=== PATIENT | female | born 1985 | race Caucasian/White ===

== ENCOUNTER → 2020-06-11 11:17 | Outpatient (CLI) | payer BC, SELFPAY ==
--- NOTE | ~2020-06-11 | US_ITS ---
EXAMINATION: US pelvic complete DATE: 06/11/2020 11:36 INDICATION: Breakthrough bleeding after workout TECHNIQUE: Multiple transabdominal sonographic images of the pelvis were obtained. COMPARISON: None. FINDINGS: The uterus measures 7.1 x 3.4 x 4.5 cm. The endometrial complex measures 6 mm. The right ov jim measures 3.1 x 1.6 x 2 cm. The left ovary measures 3.4 x 2.6 x 5 cm and contains small follicles and cysts. There is normal vascular flow in the ovaries. There is no free fluid in the pelvis. IMPRESSION: 1. No sonographic correlate for the patient's symptoms. Reviewed, dictated and finalized at location B.
== END ==
PROVIDERS: Visit Provider Nurse Practitioner
DX: N93.9 Abnormal uterine and vaginal bleeding, unspecified (principal)
CPT/HCPCS: 76856

== ENCOUNTER → 2021-04-15 17:14 | Outpatient (CLI) | payer BC, SELFPAY ==
--- NOTE | ~2021-04-15 | XR_ITS ---
EXAMINATION: XR knee LT min 4V, XR knee RT min 4V DATE: 04/15/2021 17:39 INDICATION: Bilateral knee pain TECHNIQUE: 1. Weight bearing anteroposterior and Hull, sunrise, and flexed lateral views of the left knee w ere obtained 2. Weight bearing anteroposterior and Hull, sunrise, and flexed lateral views of the right knee were obtained COMPARISON: None. FINDINGS: Alignment is normal at both knees. No fracture. Joint spaces are normal at both knees. No joint effu alverto. Soft tissues are unremarkable. IMPRESSION: 1. Normal bilateral knee radiographs. Reviewed, dictated and finalized at location A. IMPRESSION: 1. Normal bilateral knee radiographs.
== END ==
PROVIDERS: PCP Family Medicine; Visit Provider Physician Assistant
DX: M25.561 Pain in right knee (principal); M25.562 Pain in left knee
CPT/HCPCS: 73564

== ENCOUNTER → 2021-06-03 09:05 | Outpatient (CLI) | payer BC, SELFPAY ==
--- NOTE | ~2021-06-03 | XR_ITS ---
EXAMINATION:XR_CERV2-3V_CR DATE: 06/03/2021 09:49 INDICATION: Neck pain TECHNIQUE: AP, lateral, and odontoid views of the cervical spine are provided. COMPARISON: None FINDINGS: Alignment is normal. The odontoid is intact. No fracture is identified. Vertebral body heig hts and disk spaces are normal. Prevertebral soft tissues are normal. IMPRESSION: 1. No acute osseous abnormality. Reviewed, dictated and finalized at location A.
--- NOTE | ~2021-06-03 | XR_ITS ---
EXAMINATION: XR lumbar spine 2-3V DATE: 06/03/2021 09:49 INDICATION: Low back pain TECHNIQUE: Anteroposterior and lateral views of the lumbar spine, and cone-down lateral view of the l umbosacral junction were obtained. COMPARISON: None. FINDINGS: There is no fracture, dislocation, or subluxation. The vertebral body heights, alignment, a nd intervertebral disc spaces are normal. The paravertebral soft tissues are unremarkable. IMPRESSION: 1. No acute osseous abnormality. Reviewed, dictated and finalized at location A.
== END ==
PROVIDERS: PCP Family Medicine; Visit Provider Physician Assistant
DX: M54.5 Low back pain (principal); M54.2 Cervicalgia
CPT/HCPCS: 72040; 72100

== ENCOUNTER 2024-02-25 08:34 | Outpatient (CLI) | payer BC, SELFPAY ==
--- NOTE | ~2024-02-25 | MMUS_ITS ---
EXAMINATION: MM diagnostic amanda BI w zoey, US breast BI complete HISTORY: Bilateral breast lumps TECHNIQUE: ML, MLO and CC 3-D tomosynthesis images of both breasts were performed and synthetic 2-D i mages were generated. CAD analysis was submitted and interpreted. High resolution complete bilateral breast ultrasound examination including all 4 quadrants and subareolar areas was performed. COMPARISON: None BREAST PARENCHYMAL COMPOSITION: The breasts are extremely dense, which lowers the sensitivity of mamm ography. FINDINGS: MAMMOGRAPHIC FINDINGS: No suspicious mass or architectural distortion, malignant calcification, skin thickening or retractio n is detected. The extremely dense stroma may obscure masses. ULTRASOUND: No suspicious mass or shadowing of either breast is detected. Right breast: 4.9 x 6.5 x 3.2 mm simple cyst with through transmission posterior enhancement is noted in the subare olar area. 10:00 6 cm from nipple: Parallel circumscribed sonolucent 2.5 x 6.9 x 6.3 mm lesion without internal vascularity, with through transmission, consistent with simple cyst Left breast: Parallel circumscribed sonolucency with through transmission, no internal vascularity, m easuring 6.7 x 6 x 3.3 mm, consistent with simple cyst IMPRESSION: 1. Benign findings 2. Routine mammographic screening is recommended BI-RADS Category 2: Benign finding(s). Reviewed, dictated and finalized at location A. IMPRESSION: 1. Benign findings 2. Routine mammographic screening is recommended BI-RADS Category 2: Benign finding(s).
== END 2024-02-25 08:35 | disposition home or self-care (01) ==
LOC: CHSIMG 08:36
PROVIDERS: PCP Family Medicine; Visit Provider Nurse Practitioner
DX: N63.10 Unspecified lump in the right breast, unspecified quadrant (principal); N63.20 Unspecified lump in the left breast, unspecified quadrant
CPT/HCPCS: 76641; 77062; 77066; G0279

== ENCOUNTER 2024-12-16 09:02 | Outpatient (CLI) | payer BC, SELFPAY ==
--- NOTE | ~2024-12-16 | CT_ITS ---
EXAMINATION: CT abdomen pelvis w con DATE: 12/16/2024 09:29 INDICATION: Low abdominal pain, unspecified. TECHNIQUE: Computed tomography (CT) of the abdomen and pelvis was performed with 100 mL Omnipaque 350 intravenous contrast. Automated exposure control and iterative reconstruction technique were employe d. The dose-length product was 329.18 mGy-cm. COMPARISON: None. FINDINGS: The visualized portions of lung bases demonstrate mild atelectasis. No pleural effusion. Th e heart size is normal. No pericardial effusion. There is a 14 mm mass in the liver. The gallbladder, spleen, pancreas, and adrenal glands are normal. There are cysts in the kidneys measuring up to 8 mm on the right. The appendix is normal. There are no dilated loops of bowel. There are no pathological ly enlarged lymph nodes. There is no free intraperitoneal fluid. The bones are unremarkable. IMPRESSION: 1. 14 mm liver mass, which may be benign or less likely malignant. Abdomen MRI without and with contr ast is recommended. Reviewed, dictated and finalized at location A. OF TOWN COLLECTION CLERK IMPRESSION: 1. 14 mm liver mass, which may be benign or less likely malignant. Abdomen MRI without and with contrast is recommended.
== END 2024-12-16 09:03 | disposition home or self-care (01) ==
LOC: MICIMG 09:03
PROVIDERS: PCP Family Medicine; Visit Provider Physician Assistant Medical
DX: R10.30 Lower abdominal pain, unspecified (principal); K52.9 Noninfective gastroenteritis and colitis, unspecified
CPT/HCPCS: 74177; Q9967

== ENCOUNTER 2024-12-31 13:19 | Outpatient (CLI) | payer BC, SELFPAY ==
--- NOTE | ~2024-12-31 | MR_ITS ---
EXAMINATION: MR abdomen wo/w con DATE: 12/31/2024 14:10 INDICATION: 14 mm liver mass on prior CT TECHNIQUE: Magnetic resonance imaging (MRI) of the abdomen was performed without and with 9 mL Multih ance intravenous contrast. Sequences included coronal T2-weighted SS-FSE, coronal and axial FS 2D-FI ESTA, axial STIR FSE, axial T2-weighted SS-FSE, axial T2-weighted FS SS-FSE, axial diffusion-weighted SE, axial dual-echo T1-weighted FSPGR, and axial and coronal T1-weighted LAVA. Postcontrast axial T1 -weighted LAVA images were obtained in a time course. Postcontrast coronal T1-weighted LAVA images we re obtained. COMPARISON: CT dated 12/16/2024 FINDINGS: Heart size is normal. No pericardial or pleural effusion. Gallbladder, spleen, pancreas, left kidney and bilateral adrenal glands are normal. 9 mm T2 hyperintense nonenhancing right renal cyst. 1.4 cm T 2 hyperintense lesion at the dome of the liver which demonstrate subtle peripheral enhancement on the 5 minute delayed image which fills in remains on the delayed imaging consistent with a hemangioma. N o other hepatic lesions identified. Visualized portions of bowels are unremarkable. No pathologically enlarged abdominal lymphadenopathy. Bone marrow signal is normal throughout. IMPRESSION: 1. 14 mm hemangioma at the dome of the liver. Reviewed, dictated and finalized at location B. TH SERVICE COORDINATOR
== END 2024-12-31 13:20 | disposition home or self-care (01) ==
PROVIDERS: PCP Family Medicine; Visit Provider Physician Assistant Medical
DX: R16.0 Hepatomegaly, not elsewhere classified (principal)
CPT/HCPCS: 74183; A9577

== ENCOUNTER 2025-01-12 01:43 | Day surgery (SDC) | payer BC, SELFPAY ==
[2025-01-08 11:06] VITALS: BMI 19.1
--- OUTSIDE RECORDS SUMMARY | 2025-01-12 01:46 | XMS_ITS ---
Author Organization [facility] Address [address] [facility] [address] [place] [address] Care Team Providers Care Belt Splicer Name Role Phone Taurus Lundberg Primary Care Provider JAYA Deal [phone] Medications Medication SIG (Take, Route, Frequency, Duration) Notes Start Date End Date Status Escitalopram Oxalate 10 MG TAKE 1 TABLET BY MOUTH ONCE DAILY Oral for 90 Days Active Escitalopram Oxalate 10 MG Oral for 90 Days Active Lo Loestrin Fe 1 MG-10 MCG / 10 MCG Oral for 84 Days Active Lo Loestrin Fe 1 MG-10 MCG / 10 MCG TAKE 1 TABLET BY MOUTH ONCE DAILY Oral for 84 Days Active Encounters Encounter Location Date Provider Diagnosis [facility] [address] [facility] [address] [place] [address] 07/22/2024 JAYA COLE Plan Of Treatment No Information Progress Notes * Danna FAY DDOB: 6 (39 yo F)Acc No.[id number]:07/22/2024 Patient: Danna VILLARREAL Cynthia Provider: Emily Cole MD :1985 A ge:38 Y S ex:Female Date:07/22/2024 Address:[address] Pcp:Taurus Lundberg Subjective: * Chief Complaints: * * Medical History: * Medications: T aking Escitalopram Oxalate 10 MG Tablet TAKE 1 TABLET BY MOUTH ONCE DAILY Oral , Taking Escitalopram Oxalate 10 MG Tablet Oral , Taking Lo Loestrin Fe 1 MG-10 MCG / 10 MCG Tablet Oral , Taking Lo Loestrin Fe 1 MG-10 MCG / 10 MCG Tablet TAKE 1 TABLET BY MOUTH ONCE DAILY Oral Objective: * Vitals: Assessment: Plan: * Treatment: * * Electronic signature of RAUL COLE MD on 01/12/2025 at 01:46 AM CDT Sign off status: Pending * Provider: Emily Cole MD Date: 0 07/22/2024 Generated for Fernando naidu/Tito/John on: 0 01/12/2025 01:46 AM CDT
--- OUTSIDE RECORDS SUMMARY | 2025-01-12 01:46 | XMS_ITS | Referral Summary ---
Author Organization [facility] Address [address] [place] [address] Care Team Providers Care Sr Account Executive Name Role Phone Taurus Lundberg MD Primary Care Provider Allergies Active Allergy Reactions Criticality Noted Date Comments Penicillin G Rash Reaction: RASH, Medications ergocalciferol (VITAMIN D) 50,000 unit capsule TAKE 1 CAPSULE BY MOUTH ONCE A WEEK (EVERY 7 DAYS) 10/28/2020 Active doxycycline (PERIOSTAT) 20 mg tablet 05/17/2021 Active spironolactone (ALDACTONE) 50 mg tablet TAKE 1 TABLET BY MOUTH ONCE DAILY FOR ACNE 05/13/2021 Active Active Problems No known active problems Immunizations Immunization Administration Dates Next Due HPV, Quadrivalent 07/15/2012 Td, adsorbed 11/05/2007 Social History Tobacco Use Types Packs/Day Years Used Date Smoking Tobacco: Never Smokeless Tobacco: Never Alcohol Use Standard Drinks/Week Comments Yes 0 (1 standard drink = 0.6 oz pur e alcohol) Comments Unknown Sex and Gender Information Value Date Recorded Sex Assigned at Not on file Legal Sex Female 11:17 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 Gender Identity Not on file Sexual Orientation Not on file Last Filed Vital Signs Vital Sign Reading Time Taken Comments Blood Pressure 110/73 08/05/2021 1:36 PM CDT Pulse 73 08/05/2021 1:36 PM CDT Temperature - - Respiratory Rate - - Oxygen Saturation - - Inhaled Oxygen Concentration - - Weight 53.1 kg (117 lb) 08/05/2021 1:36 PM CDT Height 165.1 cm (5' 5 ) 08/05/2021 1:36 PM CDT Body Mass Index 19.47 08/05/2021 1:36 PM CDT Plan of Treatment Not on file Insurance [facility] BL CHOICE PRF PPO [place] Care Teams Sr Account Executive Relationship Specialty Start Date End Date Taurus Lundberg MD [address] [facility] [address] [place] [address] PCP - General Family Medicine 04/28/21
--- OUTSIDE RECORDS SUMMARY | 2025-01-12 01:46 | XMS_ITS | Patient Health Record ---
Author Organization [facility] Address [address] [facility] [address] [facility] [[email or web address] [address] [place] [address] Care Team Providers Care Airline Customer Service Agent Name Role Phone Taurus Lundberg Primary Care Provider JAYA Deal Unavailable [phone] Allergies No Known Allergies Reason For Referral No Information Medications Medication SIG (Take, Route, Frequency, Duration) [...] ONCE DAILY Oral for 84 Days Active Social History Tobacco Use: Social History Observation Description Date Details (start date - stop date) Never Smoker NA - NA Tobacco Use/Smoking Question Answer Notes Are you a nonsmoker Alcohol Screen (Audit-C) Question Answer Notes Did you have a drink contain ing alcohol in the past year? Yes How often did you have a dri nk containing alcohol in the past year? Monthly or less (1 point) How often did you have 6 or more drinks on one occasion in the past year? Never (0 point) Points 1 Interpretation Negative Encounters Encounter Location Date Provider Diagnosis [address] [address] 06/21/2024 JAYA COLE Asymptomatic varicose veins of unspecified lower extremity I83.90 and Pain in leg, unspecified M79.606 [facility] [address] [facility] [address] [place] [address] 07/22/2024 JAYA COLE [address] [place] [place] [address] 01/09/2025 JAYA COLE [facility] [address] [facility] [address] [place] [address] 06/06/2024 JAYA COLE Asymptomatic varicose veins of unspecified lower extremity I83.90 and Pain in leg, unspecified M79.606 [facility] [address] [address] 06/21/2024 JAYA COLE [facility] [address] [facility] [address] [place] [address] 06/06/2024 JAYA COLE [facility] [address] [facility] [address] [address] 06/21/2024 JAYA COLE [facility] [address] [address] 11/04/2024 JAYA COLE Assessments Encounter Date Diagnosis (ICD Code) Assessment Notes Treatment Notes Treatment Clinical Notes Section Notes 06/06/2024 Asymptomatic varicose veins of unspecified lower extremity (ICD-10 - I83.90) 06/06/2024 Pain in leg, unspecified (ICD-10 - M79.606) Venous reflux studies not done. Will start conservative therapy with compression stockings, leg elevation, exercise and NSAID-s. Further recommendations will follow.,will need sclerotherapy 400 dolloar session times 1 to claf spiders 06/21/2024 Asymptomatic varicose veins of unspecified lower extremity (ICD-10 - I83.90) 0.3% poly sclerotherapy given to both legs,no issue,wrapped no issues 06/21/2024 Pain in leg, unspecified (ICD-10 - M79.606) Plan Of Treatment No Information Insurance Providers Payer Name Payer Address Payer Phone Subscriber Number Group Number Insured Name Patient Relationship to Insured Coverage Start Date Coverage End Date [employer] [address] [place], [place] [id number] Danna Ibanez Self - patient is the insured Medical (General) History Medical History History ICD Code Depression/Anxiety Surgical History Surgery Date(Month/Year) Mole removal Oral Surgery
--- OUTSIDE RECORDS SUMMARY | 2025-01-12 01:46 | XMS_ITS ---
Author Organization [facility] Address [address] [facility] [address] [place] [address] Care Team Providers Care Junior Automation Engineer Name Role Phone Taurus Lundberg Primary Care Provider JAYA Deal Unavailable [phone] REASON FOR VISIT UPDATE Encounters Encounter Location Date Provider Diagnosis [facility] [address] [facility] [address] [place] [address] 11/04/2024 JAYA COLE Plan Of Treatment No Information Progress Notes * Danna FAY DDOB: 6 (39 yo F)Acc No.[id number]:11/04/2024 Patient: Danna VILLARREAL :1985 A ge:39 Y S ex:Female Address:[address], [place] [address] * true * Date: Generated for Fernando naidu/Tito/eTransmitting on: 0 01/12/2025 01:46 AM CDT
--- OUTSIDE RECORDS SUMMARY | 2025-01-12 01:46 | XMS_ITS | Clinical Summary ---
Author Organization [facility] Address [address] [place] [address] Phone Care Team Providers Care Channel Supervisor Name Role Phone Taurus Lundberg MD Primary Care Provider Allergies Active Allergy Reactions Criticality Noted Date Comments Penicillins Other (see Comments) 11/03/2020 Medications ergocalciferol (VITAMIN D) [address]463 UNIT Capsule TAKE 1 CAPSULE BY MOUTH ONCE A WEEK (EVERY 7 DAYS) 10/28/2020 Active terbinafine (LamISIL) 250 MG Tablet TAKE 1 TABLET BY MOUTH ONCE DAILY 07/24/2020 Active Active Problems No known active problems Social History Tobacco Use Types Packs/Day Years Used Date Smoking Tobacco: Never Smokeless Tobacco: Never Comments No Sex and Gender Information Value Date Recorded Sex Assigned at Not on file Legal Sex Female 7:54 AM RESEARCH ANALYST Gender Identity Not on file Sexual Orientation Not on file Last Filed Vital Signs Vital Sign Reading Time Taken Comments Blood Pressure 100/56 11/03/2020 8:05 AM RESEARCH ANALYST Pulse 75 11/03/2020 8:05 AM RESEARCH ANALYST Temperature 37.3 C (99.1 F) 11/03/2020 8:05 AM RESEARCH ANALYST Respiratory Rate 18 11/03/2020 8:05 AM RESEARCH ANALYST Oxygen Saturation 99% 11/03/2020 8:05 AM RESEARCH ANALYST Inhaled Oxygen Concentration - - Weight 49.9 kg (110 lb) 11/03/2020 8:05 AM RESEARCH ANALYST Height - - Body Mass Index - - Plan of Treatment Health Maintenance Due Date Last Done Comments Hepatitis C Virus (HCV) Screening 1985 TdaP Immunization 1985 Pap Smear 2007 Cervical Cancer Screening (CCS) 2016 HPV/Cotest 2016 Influenza Immunization (#1) 2024 SARS-COV-2 Immunization ( season) 2024 08/26/2021, 12/02/2020, 11/04/2020 Respiratory Syncytial Virus (RSV) Immunization (Adult) (1 - 1-dose 75+ series) 2061 DTaP/Tdap/Td Immunization Discontinued 1991, 10/26/1987, 07/21/1987, Additional history exists Hepatitis B Immunization Completed 997, 02/11/1997, 01/07/1997 Meningococcal Immunization (ACWY) Aged Out No longer eligible based on patient's age to complete this topic Pneumococcal Immunization Combined Aged Out No longer eligible based on patient's age to complete this topic Rotavirus Immunization Aged Out No lo nger eligible based on patient's age to complete this topic Insurance Care Teams Channel Supervisor Relationship Specialty Start Date End Date Taurus Lundberg MD [address] [place] [address] PCP - General Family Medicine 11/03/20
--- OUTSIDE RECORDS SUMMARY | 2025-01-12 01:46 | XMS_ITS ---
Author Organization [facility] Address [address] [address] Care Team Providers Care Aircraft Quality Control Inspector Name Role Phone Taurus Lundberg Primary Care Provider JAYA Deal Unavailable [phone] REASON FOR VISIT touch up session $150.00 plus co pay amount $40.00 back bill please collect $190.00 total Encounters Encounter Location Date Provider Diagnosis [address] [address] 01/09/2025 JAYA COLE Plan Of Treatment No Information Progress Notes * Danna FAY DDOB: 6 (39 yo F)Acc No.[id number]:01/09/2025 Patient: Octavio VALIENTEDanna Provider: Emiyl Cole MD :1985 A ge:39 Y S ex:Female Date:01/09/2025 Address:[address] Pcp:Taurus Lundberg Subjective: * Chief Complaints: * 1 . Touch up session $150.00 plus co pay amount $40.00 back bill please collect $190.00 total. * Medical History: Objective: * Vitals: Assessment: Plan: * Treatment: * * Electronic signature of RAUL COLE MD on 01/12/2025 at 01:46 AM CDT Sign off status: Pending * Provider: Emily Cole MD Date: 01/09/2025 Generated for Fernando naidu/Tito/John on: 0 01/12/2025 01:46 AM CDT
--- OUTSIDE RECORDS SUMMARY | 2025-01-12 01:46 | XMS_ITS | Clinical Summary ---
Author Organization [facility] Address [address] [place] [address] Care Team Providers Care Dry Charge Process Attendant Name Role Phone Taurus Lundberg MD Primary [...] Due HPV, Quadrivalent 07/15/2012 Td, adsorbed 11/05/2007 Family History Medical History Relation Name Comments Coronary artery disease Father Adeline nary artery disease, premature; CABG & VALVE REPLACED Hyperlipidemia Father Hyperlipidemi a; Coronary artery disease Father's Brother Coronary artery disease, premature; Colon cancer Maternal Grandfather Cancer -colon; Hyperlipidemia Mother Hyperlipidemi a; Other Mother STOMACH PROBLEM S; Lung cancer Mother's Brother Cancer, aliyah g; Cancer Other Diabetes Other Heart disease Other Hypertension Other Family history of Hypertension; Coronary artery disease Paternal Grandmother Coronary artery disease, premature; Diabetes type II Paternal Grandmother Sophie betes -Type 2; Colitis Sister Colitis; Relation Name Status Comments Father Alive Father's Brother Maternal Grandfather Mother Mother's Brother Other Paternal Grandmother Sister Social History Tobacco Use Types Packs/Day Years Used Date Smoking Tobacco: Never Smokeless Tobacco: Never Alcohol Use Standard Drinks/Week Comments Yes 0 (1 standard drink = 0.6 oz pur e alcohol) Comments Unknown Sex and Gender Information Value Date Recorded Sex Assigned at Not on file Legal Sex 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:17 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 Gender Identity Not on file Sexual Orientation Not on file Obstetrics History Last Filed Vital Signs Vital Sign Reading [...] 08/05/2021 1:36 PM CDT Plan of Treatment Health Maintenance Due Date Last Done Comments Cervical Cancer Screening 1986 Depression Screening 1986 Hepatitis C Screening 1986 Varicella Vaccines (1 of 2 - 13+ 2-dose series) 1999 Regular Well Visit/Exam 18-64 2004 DTaP/Tdap/Td Vaccine (5 - Tdap) 11/06/2007 11/05/2007, 06/14/1992, 10/26/1987, Additional history exists HPV Vaccines (2 - 3-dose series) 08/12/2012 07/15/2012 Influenza Vaccine (#1) 2024 Hepatitis B Screening Completed 07/15/1997 , 02/11/1997, 01/07/1997 Pneumococcal vaccine <65 Aged Out No longer eligible based on patient's age to complete this topic Insurance [facility] BLUE [place] Care Teams Dry Charge Process Attendant Relationship Specialty Start Date End Date Taurus Lundberg MD [address] [facility] [address] [place] [address] PCP - General Family Medicine 04/28/21
[2025-01-12 06:23] VITALS: BP 119/79; PULSE 73; RESP 16; TEMP 36.7; O2SAT 100
[2025-01-12 06:27] LABS: BEDSIDEPREGUCG Negative (Negative)
[2025-01-12] MEDS: LACTATED RINGERS 1,000 ML 150 ML IV CONT (06:33)
--- NOTE | 2025-01-12 07:20 | P.PNAN_ITS ---
Anes - Initial Pre Proc Eval Procedure: Operation Date: 01/12/25 07:30 Proposed Procedures p Colonoscopy - Florentin Hamilton MD Date/Time: 01/12/25 07:20 Surgeon: Florentin Hamilton MD Pre Op Diagnosis: Gatroenteritis and colitis Patient Data Age: 39 Gender: F Height: 1.65 m Weight: 51.2 kg Last Vital Signs Temp 36.7 C 01/12/25 06:23 Pulse 73 01/12/25 06:23 Resp 16 01/12/25 06:23 BP 119/79 01/12/25 06:23 Pulse Ox 100 01/12/25 06:23 O2 Del Method Room Air 01/12/25 06:23 Allergies Allergy/AdvReac Type Severity Reaction Status Date / Time Penicillins Allergy Unknown rash Verified 01/12/25 06:18 sulfamethoxazole (From Allergy Unknown lip Verified 01/12/25 06:18 Sulfamethoxazole-Trimethoprim) swelling trimethoprim (From Allergy Unknown lip Verified 01/12/25 06:18 Sulfamethoxazole-Trimethoprim) swelling Home Medications ?Medication ?Instructions ?Recorded ?Confirmed ?Type clindamycin phosphate 1 % lotion 1 applic topical BID #60 mL 10/23/23 01/08/25 Rx norethindrone 1 mg-ethinyl 1 tablet PO DAILY 10/23/23 01/12/25 History estradiol 10 mcg (24)-iron 10 mcg(2) tablet (Lo Loestrin Fe) escitalopram oxalate 10 mg tablet See Rx Instructions .Route 01/06/25 01/12/25 Rx .COMPLEX #90 tabs cholecalciferol (vitamin D3) 50 50 mcg PO DAILY 01/08/25 01/12/25 History mcg (2,000 unit) tablet (D3 DOTS) Laboratory Tests 01/12/25 06:23 POC Urine HCG, Qual Negative (Negative) Patient hx anesthesia problems: none Family hx anesthesia problems: post op nausea/vomiting Results Review: All pre-operative results and documents have been reviewed as part of the pre- operative evaluation. [facility] Family History Family History Father Hypertension Malignant neoplasm of prostate Mother Heart disease Social History Social History Smoking status: Never smoker Second hand tobacco smoke exposure: No Alcohol intake: current Alcohol use details: social drinker Substance use: never Substance use type: does not use Living arrangements: with family Occupation/Education: occupation Gender identity (if verbalized by the patient): Female Sexual Orientation (if Verbalized by the Patient): Straight or Heterosexual Spiritual care concerns: No Anes - Eval Final PreProcedure Day of Procedure 01/12/25 07:20 Patient weight: normal Heart: regular rate and rhythm Lungs: clear to auscultation Airway: Mallampati scale class II Neurological: alert and oriented Last oral intake: >/= 8 hours ASA classification: II Emergent: no Anesthetic plan: proceed Anesthesia type and monitoring: general GIVS and standard monitoring Results Review: All pre-operative results and documents have been reviewed as part of the pre- operative evaluation. Informed Consent: The patient's anesthetic plan and its attendant risks and benefits were discussed with the patient/family/POA. Questions were solicited and answers provided to the satisfaction of the patient/family/POA.
--- NOTE | 2025-01-12 07:25 | PM.HPGS ---
History of Present Illness History of Present Illness Consent: Risks, benefits, and alternatives have been discussed and questions answered. Patient agrees to proceed with procedure. Chief complaint: Gatroenteritis and colitis Narrative: Danna Ibanez is a 39 year old female here for first colonoscopy, intermittent bloating with cramping, had some loose stools that improved after using align Review of Systems Review of Systems: All systems reviewed & are unremarkable except as noted in HPI and below PMFSH Past Medical History Medical History (Updated 01/12/25 @ 07:27 by Florentin Hamilton MD) Abdominal cramping Family History Family History Father Hypertension Malignant neoplasm of prostate Mother Heart disease Social History Social History Smoking status: Never smoker Second hand tobacco smoke exposure: No Alcohol intake: current Alcohol use details: social drinker Substance use: never Substance use type: does not use Living arrangements: with family Occupation/Education: occupation Gender identity (if verbalized by the patient): Female Sexual Orientation (if Verbalized by the Patient): Straight or Heterosexual Spiritual care concerns: No Meds Home Medications and Allergies Home Medications ?Medication ?Instructions ?Recorded ?Confirmed ?Type clindamycin phosphate 1 % lotion 1 applic topical BID #60 mL 10/23/23 01/08/25 Rx norethindrone 1 mg-ethinyl 1 tablet PO DAILY 10/23/23 01/12/25 History estradiol 10 mcg (24)-iron 10 mcg(2) tablet (Lo Loestrin Fe) escitalopram oxalate 10 mg tablet See Rx Instructions .Route 01/06/25 01/12/25 Rx .COMPLEX #90 tabs cholecalciferol (vitamin D3) 50 50 mcg PO DAILY 01/08/25 01/12/25 History mcg (2,000 unit) tablet (D3 DOTS) Allergies Allergy/AdvReac Type Severity Reaction Status Date / Time Penicillins Allergy Unknown rash Verified 01/12/25 06:18 sulfamethoxazole (From Allergy Unknown lip Verified 01/12/25 06:18 Sulfamethoxazole-Trimethoprim) swelling trimethoprim (From Allergy Unknown lip Verified 01/12/25 06:18 Sulfamethoxazole-Trimethoprim) swelling Vital Signs Vital Signs - 24 hr 01/12/25 06:23 Temperature 98.1 F Pulse Rate 73 Respiratory Rate 16 Blood Pressure 119/79 Pulse Oximetry 100 Oxygen Delivery Room Air Exam Const: General: comfortable and no acute distress HENMT: Face/Nose/Sinus: Normal nares present Eyes: General: appearance normal, both eyes and all related structures Neck: Neck: no JVD Resp: Auscultation: clear to auscultation bilaterally Cardio: Rate: regular rate Rhythm: regular rhythm GI: Inspection: non-distended GI Palp: Yes Soft to palpation Skin: General skin exam: normal color Neuro: General: gait normal Speech: normal speech Extrem: General: normal to inspection Psych: Mental Status: mental status grossly normal Assessment and Plan Assessment and plan (1) Abdominal cramping: Code(s): R10.9 - Unspecified abdominal pain Status: Acute Assessment and Plan: colonoscopy, consider random biopsies
[2025-01-12 07:46] VITALS: BP 102/60; PULSE 71; RESP 19; O2SAT 100
[2025-01-12 07:56] VITALS: BP 97/58; PULSE 69; RESP 19; O2SAT 100
[2025-01-12 08:06] VITALS: BP 104/61; PULSE 64; RESP 19; O2SAT 100
== END 2025-01-12 08:17 | disposition home or self-care (01) ==
PROVIDERS: Anesthesiology; PCP Family Medicine; Referring Provider Physician Assistant Medical; Visit Provider Internal Medicine Gastroenterology
PROC: 0DJD8ZZ Inspection of Lower Intestinal Tract, Via Natural or Artificial Opening Endoscopic (ICD-10-PCS; CPT 45378; principal; 2025-01-12 07:30)
DX: R10.9 Unspecified abdominal pain (principal); K64.8 Other hemorrhoids; R14.3 Flatulence
CPT/HCPCS: 45380; 88305; J2003; J2704; J7120

== ENCOUNTER 2025-05-18 07:53 | Outpatient (CLI) | payer BC, SELFPAY ==
--- NOTE | ~2025-05-18 | US_ITS ---
US pelvic complete w TV Ordering provider: Long Lennon MD History: . R10.2 - Pelvic and perineal pain . Comparison: None. Technique: Transabdominal and endovaginal ultrasound of the pelvis (Doppler ultrasound interrogation techniques used as needed for this exam.) FINDINGS: CERVIX: Normal. UTERUS: Measures 8x 3.8x 5 cm in length which is within normal limits and is anteverted. No myometri al masses. Echogenic area is seen posterior to the endometrial cavity measuring 0.7 x 0.5 x 0.8 cm. ENDOMETRIUM: Normal in thickness measuring 5 mm. No endometrial masses, cysts or fluid. CUL DE SAC: Minimal free fluid. RIGHT OVARY: Normal in size measuring 3.1x 1.8x 2.7 cm. Normal echotexture. Doppler vascular flow pre sent. Follicles are seen in the ovary. LEFT OVARY: Normal in size measuring 2.4x 1.2x 2.3 cm. Normal echotexture. Doppler vascular flow pres ent. Follicles are seen. ADNEXA: Normal. No mass. IMPRESSION: Highly suggestive small fibroid. 3-6 months Follow-up is advised. Otherwise, normal pelvic ultrasoun d. Reviewed, dictated and finalized at location A. IMPRESSION: Highly suggestive small fibroid. 3-6 months Follow-up is advised. Otherwise, n ormal pelvic ultrasound.
== END 2025-05-18 07:54 | disposition home or self-care (01) ==
LOC: MICIMG 07:53
PROVIDERS: PCP Family Medicine; Visit Provider Student in an Organized Health Care Education/Training Program
DX: R10.2 Pelvic and perineal pain (principal)
CPT/HCPCS: 76830; 76856